=== PATIENT | female | born 2000 | race Caucasian/White ===

== ENCOUNTER 2020-07-28 02:26 | Emergency (ER) | payer BC ==
[~2020-07-28] VITALS: Ht 170.2 cm; Wt 86.0 kg
[2020-07-28 02:31] VITALS: BP 156/96
[2020-07-28] MEDS ORDERED: SULF1TAB49 PO (04:08)
== END 2020-07-28 04:39 | disposition home or self-care (01) ==
LOC: ER 02:27
DX: I80.02 Phlebitis and thrombophlebitis of superficial vessels of left lower extremity (principal); M79.605 Pain in left leg; Z79.2 Long term (current) use of antibiotics
CPT/HCPCS: 99283

== ENCOUNTER 2020-09-20 16:31 | Emergency (ER) | payer BC ==
[~2020-09-20] VITALS: Ht 170.2 cm; Wt 90.0 kg
== END 2020-09-20 17:49 | disposition home or self-care (01) ==
LOC: ER 16:32 → EEVIPCON 16:32 → ER 17:49
DX: U07.1 COVID-19 (principal); J06.9 Acute upper respiratory infection, unspecified; R05 Cough; R51.9 Headache, unspecified
CPT/HCPCS: 36415; 87635; 99283